=== PATIENT | male | born 1970 | race Two or more races ===

== ENCOUNTER → 2020-02-24 | Outpatient (CLI) | payer SELFPAY ==
[~2020-02-24] MED LIST: GADOBUTROL 1 MMOL/ML 10 ML VIAL IVP ONE
== END | disposition home or self-care (01) ==
LOC: RADMN 20:32
DX: M51.36 Other intervertebral disc degeneration, lumbar region (principal); M47.816 Spondylosis without myelopathy or radiculopathy, lumbar region; R60.0 Localized edema; M54.5 Low back pain
CPT/HCPCS: 72148; A9585